=== PATIENT | female | born 1950 | race African-American/Black ===

== ENCOUNTER 2022-06-07 20:50 | Emergency (ER) | payer MEDICARE, OTHER ==
[~2022-06-07] VITALS: Ht 165.1 cm; Wt 109.0 kg
[2022-06-07 22:59] LABS: BASOPHILS % 0.6 % (0.0-2.0); EOSINOPHILS % 2.2 % (0.0-5.0); HEMOGLOBIN. 12.2 g/dL (12.0-16.0); LYMPHOCYTES % 34.1 % (20.0-50.0); MEAN CORPUSCULAR HEMOGLOBIN 30.5 pg (28.0-32.0); MEAN CORPUSCULAR VOLUME 92.6 fL (81.0-99.0); MEAN PLATELET VOLUME 10.9 fl (7.4-10.4); MONOCYTES % 8.6 % (2.0-8.0); NEUTROPHILS % 54.5 % (40.0-76.0); PLATELET 163 x1000/uL (130-400); RED CELL DISTRIBUTION WIDTH 13.5 % (11.6-14.6)
[2022-06-07 23:05] LABS: CHLORIDE 115 mEq/L (98-107)
[2022-06-07] MEDS ORDERED: ACETAMINOPHEN 325MG TABLET PO ONE (23:30)
[2022-06-07] MEDS ORDERED: METOCLOPRAMIDE HCL 10MG/2ML VIAL IV ONE (23:30)
[2022-06-08 01:00] LABS: CLARITY URINE CLEAR (CLEAR); COLOR URINE YELLOW (YELLOW); KETONES URINE NEGATIVE (NEGATIVE); LEUKOCYTE ESTERASE URINE NEGATIVE (NEGATIVE); NITRITE URINE NEGATIVE (NEGATIVE); OCCULT BLOOD URINE NEGATIVE (NEGATIVE); PH URINE 6.5 (4.5-8.0); PROTEIN URINE NEGATIVE (NEGATIVE); SPECIFIC GRAVITY URINE 1.015 (1.005-1.030)
[2022-06-08 02:00] VITALS: BP 158/68
== END 2022-06-08 02:52 | disposition home or self-care (01) ==
LOC: ER 20:50
DX: R51.9 Headache, unspecified (principal); R53.1 Weakness; I10 Essential (primary) hypertension; I48.91 Unspecified atrial fibrillation; Z79.01 Long term (current) use of anticoagulants
CPT/HCPCS: 36415; 70450; 71045; 80053; 81003; 83880; 84484; 85025; 85730; 93005; 96374; 99285; J2765